=== PATIENT | female | born 1945 | race Two or more races ===

== ENCOUNTER 2023-10-10 14:15 | Inpatient (IN) | payer MEDICARE, OTHER ==
[~2023-10-10] VITALS: Ht 152.4 cm; Wt 55.8 kg
[2023-10-10] MEDS: IV NS 0.9% 1,000 ML BAG IV ONE ×2 (14:55→17:40)
[2023-10-10 15:12] LABS: BASOPHILS % (AUTO) 0.4 % (0.0-2.0); EOSINOPHILS % (AUTO) 0.1 % (0.0-6.0); HEMATOCRIT 41 % (33-45); HEMOGLOBIN 13.4 g/dL (11.5-14.8); LYMPHOCYTES # (AUTO) 0.6 K/uL (0.8-4.8); LYMPHOCYTES % (AUTO) 6.2 % (20.0-44.0); MEAN CORPUSCULAR HEMOGLOBIN 29 PG (26.0-33.0); MEAN CORPUSCULAR HGB CONC 33 g/dl (31.0-36.0); MEAN CORPUSCULAR VOLUME 88 fL (82-100); MONOCYTES # (AUTO) 0.4 K/uL (0.1-1.30); MONOCYTES % (AUTO) 4.1 % (2.0-12.0); NEUTROPHILS % (AUTO) 89.2 % (43.0-81.0); PLATELET COUNT (AUTO) 283 K/uL (150-450); RED BLOOD CELL COUNT(AUTO) 4.61 MIL/uL (4.0-5.2); RED CELL DISTRIBUTION WIDTH 13.9 % (11.5-15.0)
[2023-10-10 15:26] LABS: LACTIC ACID 6.6 mmol/L (0.4-2.0)
[2023-10-10] MEDS ORDERED: LORA10TA7 PO (15:27)
[2023-10-10] MEDS ORDERED: ONDA4TAB5 PO (15:27)
[2023-10-10] MEDS ORDERED: HYDR-4075 PO (15:27)
[2023-10-10] MEDS ORDERED: LOSA100T31 PO (15:27)
[2023-10-10] MEDS ORDERED: HYDR25TA4 PO (15:27)
[2023-10-10] MEDS ORDERED: CALC-167 PO (15:27)
[2023-10-10] MEDS ORDERED: INSU100I34 SQ (15:27)
[2023-10-10] MEDS ORDERED: METF-441 PO (15:27)
[2023-10-10] MEDS ORDERED: DOCU100T2 PO (15:27)
[2023-10-10] MEDS ORDERED: LEVO75TA7 PO (15:27)
[2023-10-10] MEDS ORDERED: SENN8.6T19 PO (15:27)
[2023-10-10] MEDS ORDERED: CLON0.1T PO (15:27)
[2023-10-10] MEDS ORDERED: ASPI-1169 PO (15:27)
[2023-10-10] MEDS ORDERED: FERR325T23 PO (15:27)
[2023-10-10] MEDS ORDERED: ACET-868 PO (15:27)
[2023-10-10] MEDS ORDERED: METO-357 PO (15:27)
[2023-10-10] MEDS ORDERED: BISA5TAB10 PO (15:27)
[2023-10-10] MEDS ORDERED: PRED20TA PO (15:27)
[2023-10-10] MEDS ORDERED: POTA8TAB3 PO (15:27)
[2023-10-10] MEDS ORDERED: AMLO10TA4 PO (15:27)
[2023-10-10] MEDS ORDERED: ATOR10TA PO (15:27)
[2023-10-10] MEDS ORDERED: HYDR-500 PO (15:27)
[2023-10-10] MEDS ORDERED: GABA300C PO (15:27)
[2023-10-10] MEDS ORDERED: DONE10TA44 PO (15:27)
[2023-10-10] MEDS ORDERED: DULO20CA PO (15:28)
[2023-10-10 15:32] LABS: APPEARANCE,URINE Clear (CLEAR); BILIRUBIN,URINE Negative (NEGATIVE); BLOOD, URINE Negative Ery/uL (NEGATIVE); COLOR,URINE YELLOW (YELLOW); KETONES,URINE Negative (NEGATIVE); LEUKOCYTE ESTERASE ,URINE Negative (NEGATIVE); NITRITE, URINE Negative (NEGATIVE); PH,URINE 6.5 (5.0-8.0); PROTEIN,URINE 30 mg/dl (NEGATIVE); UGLUCOSE Negative (NEGATIVE); UROBILINOGEN,URINE 0.2 EU/dL (0.2)
[2023-10-10 15:36] LABS: ADD URINE CULTURE NO; BACTERIA,URINE 1+ /HPF (None Seen); MUCUS,URINE Few /LPF (None Seen); RBC,URINE 0-2 /HPF (0-2); SQUAMOUS EPITHELIAL CELL,UR 0-2 /HPF (None Seen); WBC,URINE 0-2 /HPF (0-3)
[2023-10-10 15:41] LABS: CALCIUM, SERUM 9.6 mg/dL (8.5-10.1); CARBON DIOXIDE 23 mmol/L (21-32); CHLORIDE 94 mmol/L (98-107); GLUCOSE 193 mg/dL (74-106); POTASSIUM 4.2 mmol/L (3.5-5.1); SODIUM SERUM 129 mmol/L (136-145); UREA NITROGEN, BLOOD 25 mg/dL (7-18)
[2023-10-10 15:47] LABS: ALANINE AMINOTRANSFERASE 24 U/L (12-78); ALBUMIN 3.7 g/dL (3.4-5.0); ALKALINE PHOSPHATASE 44 U/L (46-116); ASPARTATE AMINOTRANSFERASE 10 U/L (15-37); BILIRUBIN,DIRECT 0.1 mg/dL (0.0-0.2); BILIRUBIN,TOTAL 0.3 mg/dL (0.2-1.0); TOTAL PROTEIN, SERUM 6.9 g/dL (6.4-8.2)
[2023-10-10] MEDS ORDERED: PIPERACI/TAZO 3.375GM/D5W 50ML PB IV ONE (17:40)
[2023-10-10] MEDS: PIPERACILLIN /TAZOBACTAM 3.375 G in IV D5W 50 ML IV ONE (17:45)
[2023-10-10] MEDS ORDERED: Z GUARD REMEDY 4 OZ OINT TP PRN (19:00)
[2023-10-10] MEDS ORDERED: ONDANSETRON HCL/PF 4 MG/2 ML VIAL IVP PRN (19:00)
[2023-10-10] MEDS ORDERED: ACETAMINOPHEN 325 MG TABLET PO PRN (19:00)
[2023-10-10] MEDS ORDERED: ZOLPIDEM TARTRATE 5 MG TABLET PO PRN (19:00)
[2023-10-10] MEDS ORDERED: MAGNESIUM HYDROXIDE 30 ML UDC PO PRN (19:00)
[2023-10-10] MEDS ORDERED: MAG HYDROX/AL HYDROX/SIMETH 30 ML UDC PO PRN (19:00)
[2023-10-10 19:04] VITALS: BP 141/69; TEMP 98.1; O2SAT 96
[2023-10-10] MEDS: ENOXAPARIN SODIUM 40 MG/0.4 ML DISP.SYRIN SQ SCH (20:10)
[2023-10-10] MEDS: ZOSYN IVPB 2.25 G in IV D5W 50ml IV SCH (23:59)
[2023-10-11 06:46] LABS: BASOPHILS % (AUTO) 0.1 % (0.0-2.0); EOSINOPHILS % (AUTO) 0.1 % (0.0-6.0); HEMATOCRIT 39 % (33-45); HEMOGLOBIN 12.7 g/dL (11.5-14.8); LYMPHOCYTES # (AUTO) 0.7 K/uL (0.8-4.8); MEAN CORPUSCULAR HEMOGLOBIN 29 PG (26.0-33.0); MEAN CORPUSCULAR HGB CONC 32 g/dl (31.0-36.0); MEAN CORPUSCULAR VOLUME 91 fL (82-100); MONOCYTES # (AUTO) 0.5 K/uL (0.1-1.30); NEUTROPHILS # (AUTO) 5.4 K/uL (1.8-8.9); NEUTROPHILS % (AUTO) 81.8 % (43.0-81.0); PLATELET COUNT (AUTO) 222 K/uL (150-450); RED BLOOD CELL COUNT(AUTO) 4.33 MIL/uL (4.0-5.2); RED CELL DISTRIBUTION WIDTH 13.9 % (11.5-15.0); WHITE BLOOD COUNT (AUTO) 6.6 K/uL (4.3-11.0)
[2023-10-11 07:30] VITALS: BP 160/57; TEMP 98.2; O2SAT 96
[2023-10-11 07:36] LABS: CARBON DIOXIDE 22 mmol/L (21-32); CHLORIDE 99 mmol/L (98-107); CREATININE 0.5 mg/dL (0.6-1.3); GLUCOSE 157 mg/dL (74-106); MAGNESIUM 2.1 mg/dL (1.8-2.4); PHOSPHORUS 2.9 mg/dL (2.5-4.9); POTASSIUM 3.1 mmol/L (3.5-5.1); SODIUM SERUM 133 mmol/L (136-145); UREA NITROGEN, BLOOD 18 mg/dL (7-18)
[2023-10-11 08:00] VITALS: BP 155/75
[2023-10-11] MEDS: PANTOPRAZOLE 40 MG TABLET.DR PO SCH (08:09)
[2023-10-11] MEDS: POTASSIUM CHLORIDE 20 MEQ TAB.PRT.SR PO SCH (11:50)
[2023-10-11] MEDS ORDERED: BISACODYL (5 MG) 5 MG TABLET.DR PO PRN (12:30)
[2023-10-11] MEDS ORDERED: CLONIDINE HCL 0.1 MG TABLET PO PRN (12:30)
[2023-10-11] MEDS ORDERED: ACETAMINOPHEN 325 MG TABLET PO PRN (12:30)
[2023-10-11] MEDS: IV NS 0.9% 1,000 ML IV PRN (12:38)
[2023-10-11] MEDS ORDERED: ONDANSETRON 4 MG TAB.RAPDIS PO PRN (13:00)
[2023-10-11] MEDS: hydrALAZINE HCL 10 MG TABLET PO SCH (13:41)
[2023-10-11 16:05] VITALS: BP 160/70; TEMP 97.5; O2SAT 97
[2023-10-11] MEDS: DOCUSATE SODIUM 100 MG CAPSULE PO SCH (16:13)
[2023-10-11] MEDS: GABAPENTIN 300 MG CAPSULE PO SCH (16:13)
[2023-10-11] MEDS ORDERED: hydrALAZINE HCL 25 MG TABLET PO SCH (16:30)
[2023-10-11 17:00] VITALS: BP 150/70
[2023-10-11 20:32] VITALS: BP 141/66; TEMP 98.2; O2SAT 96
[2023-10-11] MEDS: DULOXETINE HCL 20 MG CAPSULE.DR PO SCH (21:06)
[2023-10-11] MEDS: DONEPEZIL 5 MG TABLET PO SCH (21:06)
[2023-10-11] MEDS: ATORVASTATIN 10 MG TABLET PO SCH (21:06)
[2023-10-12 07:03] LABS: BASOPHILS % (AUTO) 0.1 % (0.0-2.0); EOSINOPHILS % (AUTO) 0.2 % (0.0-6.0); HEMATOCRIT 36 % (33-45); LYMPHOCYTES # (AUTO) 0.6 K/uL (0.8-4.8); LYMPHOCYTES % (AUTO) 11.4 % (20.0-44.0); MEAN CORPUSCULAR HEMOGLOBIN 29 PG (26.0-33.0); MEAN CORPUSCULAR HGB CONC 33 g/dl (31.0-36.0); MEAN CORPUSCULAR VOLUME 89 fL (82-100); MONOCYTES # (AUTO) 0.5 K/uL (0.1-1.30); NEUTROPHILS # (AUTO) 4.4 K/uL (1.8-8.9); NEUTROPHILS % (AUTO) 79.3 % (43.0-81.0); PLATELET COUNT (AUTO) 209 K/uL (150-450); RED BLOOD CELL COUNT(AUTO) 4.09 MIL/uL (4.0-5.2); RED CELL DISTRIBUTION WIDTH 13.8 % (11.5-15.0); WHITE BLOOD COUNT (AUTO) 5.6 K/uL (4.3-11.0)
[2023-10-12 07:30] VITALS: BP 129/59; TEMP 97.2; O2SAT 97
[2023-10-12 07:40] LABS: CALCIUM, SERUM 8.4 mg/dL (8.5-10.1); CARBON DIOXIDE 24 mmol/L (21-32); CHLORIDE 102 mmol/L (98-107); CREATININE 0.6 mg/dL (0.6-1.3); GLUCOSE 237 mg/dL (74-106); MAGNESIUM 2.2 mg/dL (1.8-2.4); PHOSPHORUS 2.4 mg/dL (2.5-4.9); POTASSIUM 3.4 mmol/L (3.5-5.1); SODIUM SERUM 138 mmol/L (136-145); UREA NITROGEN, BLOOD 15 mg/dL (7-18)
[2023-10-12] MEDS: ASPIRIN 81 MG TAB.CHEW PO SCH (08:22)
[2023-10-12] MEDS: predniSONE 20 MG TABLET PO SCH (08:22)
[2023-10-12] MEDS: SENNOSIDES 8.6 MG TABLET PO SCH (08:22)
[2023-10-12] MEDS: CALCIUM CARB 600MG /VIT D 1 EACH TABLET PO SCH (08:22)
[2023-10-12] MEDS: FERROUS SULFATE (325 MG) 325 MG/TAB TABLET PO SCH (08:22)
[2023-10-12] MEDS: LORATADINE 10 MG TABLET PO SCH (08:22)
[2023-10-12] MEDS: AMLODIPINE BESYLATE 10 MG TABLET PO SCH (08:23)
[2023-10-12] MEDS: HYDROCHLOROTHIAZIDE 25 MG TABLET PO SCH (08:23)
[2023-10-12] MEDS: LEVOTHYROXINE SODIUM 75 MCG TABLET PO SCH (08:23)
[2023-10-12] MEDS: METOPROLOL SUCCINATE 50 MG TAB.SR.24H PO SCH (08:24)
[2023-10-12 08:55] LABS: URIC ACID 1.9 mg/dL (2.6-7.2)
[2023-10-12] MEDS ORDERED: hydrOXYzine 10 MG TABLET PO SCH (09:00)
[2023-10-12] MEDS: POTASSIUM CHLORIDE 20 MEQ TAB.PRT.SR PO SCH (12:27)
[2023-10-12 16:00] VITALS: BP 180/67; TEMP 97.7; O2SAT 98
[2023-10-12] MEDS: K PHOS NEUTRAL 250 MG TABLET PO ONE (16:15)
[2023-10-12] MEDS ORDERED: DEXTROSE 50%-WATER 50 ML DISP.SYRIN IV PRN (17:30)
[2023-10-12] MEDS: INSULIN REGULAR, HUMAN 100 UNIT/ML 3 ML VIAL SQ PRN (19:25)
[2023-10-12] MEDS: BLOOD SUGAR DIAGNOSTIC 1 EACH STRIP IN SCH (19:30)
[2023-10-12 20:00] VITALS: BP 156/74; TEMP 97.8; O2SAT 97
[2023-10-13 07:36] LABS: BASOPHILS % (AUTO) 0.1 % (0.0-2.0); EOSINOPHILS % (AUTO) 0.4 % (0.0-6.0); HEMATOCRIT 39 % (33-45); HEMOGLOBIN 12.9 g/dL (11.5-14.8); LYMPHOCYTES # (AUTO) 0.8 K/uL (0.8-4.8); LYMPHOCYTES % (AUTO) 10.1 % (20.0-44.0); MEAN CORPUSCULAR HEMOGLOBIN 29 PG (26.0-33.0); MEAN CORPUSCULAR HGB CONC 33 g/dl (31.0-36.0); MEAN CORPUSCULAR VOLUME 88 fL (82-100); MONOCYTES # (AUTO) 0.7 K/uL (0.1-1.30); MONOCYTES % (AUTO) 9.6 % (2.0-12.0); NEUTROPHILS % (AUTO) 79.8 % (43.0-81.0); PLATELET COUNT (AUTO) 239 K/uL (150-450); RED BLOOD CELL COUNT(AUTO) 4.47 MIL/uL (4.0-5.2); RED CELL DISTRIBUTION WIDTH 13.7 % (11.5-15.0); WHITE BLOOD COUNT (AUTO) 7.6 K/uL (4.3-11.0)
[2023-10-13 08:07] LABS: CALCIUM, SERUM 9.2 mg/dL (8.5-10.1); CARBON DIOXIDE 29 mmol/L (21-32); CHLORIDE 98 mmol/L (98-107); CREATININE 0.6 mg/dL (0.6-1.3); GLUCOSE 152 mg/dL (74-106); MAGNESIUM 2.2 mg/dL (1.8-2.4); PHOSPHORUS 2.9 mg/dL (2.5-4.9); POTASSIUM 3.2 mmol/L (3.5-5.1); SODIUM SERUM 135 mmol/L (136-145); UREA NITROGEN, BLOOD 13 mg/dL (7-18)
[2023-10-13] MEDS: POTASSIUM CHLORIDE 20 MEQ TAB.PRT.SR PO SCH (10:12)
[2023-10-13 11:27] VITALS: BP 159/81
[2023-10-14 07:33] LABS: EOSINOPHILS % (AUTO) 0.5 % (0.0-6.0); HEMATOCRIT 39 % (33-45); LYMPHOCYTES # (AUTO) 0.9 K/uL (0.8-4.8); MEAN CORPUSCULAR HEMOGLOBIN 29 PG (26.0-33.0); MEAN CORPUSCULAR HGB CONC 33 g/dl (31.0-36.0); MEAN CORPUSCULAR VOLUME 88 fL (82-100); MONOCYTES # (AUTO) 0.6 K/uL (0.1-1.30); MONOCYTES % (AUTO) 8.1 % (2.0-12.0); NEUTROPHILS # (AUTO) 6.1 K/uL (1.8-8.9); NEUTROPHILS % (AUTO) 79.4 % (43.0-81.0); PLATELET COUNT (AUTO) 216 K/uL (150-450); RED BLOOD CELL COUNT(AUTO) 4.43 MIL/uL (4.0-5.2); RED CELL DISTRIBUTION WIDTH 13.9 % (11.5-15.0); WHITE BLOOD COUNT (AUTO) 7.6 K/uL (4.3-11.0)
[2023-10-14 07:57] LABS: CALCIUM, SERUM 9.2 mg/dL (8.5-10.1); CARBON DIOXIDE 26 mmol/L (21-32); CHLORIDE 99 mmol/L (98-107); CREATININE 0.6 mg/dL (0.6-1.3); GLUCOSE 160 mg/dL (74-106); MAGNESIUM 2.4 mg/dL (1.8-2.4); PHOSPHORUS 3.1 mg/dL (2.5-4.9); POTASSIUM 3.9 mmol/L (3.5-5.1); SODIUM SERUM 135 mmol/L (136-145); UREA NITROGEN, BLOOD 21 mg/dL (7-18)
[2023-10-14 08:36] VITALS: BP 170/74; TEMP 98; O2SAT 95
[2023-10-14] MEDS: LISINOPRIL (20MG) 20 MG TABLET PO SCH (12:59)
[2023-10-14 16:15] VITALS: BP 162/73
[2023-10-14] MEDS: hydrALAZINE HCL 25 MG TABLET PO PRN (16:15)
== END 2023-10-14 16:35 | DRG 641 ==
LOC: ER 14:26 → MED 18:13
PROVIDERS: ADMIT Student in an Organized Health Care Education/Training Program; ATTEND Student in an Organized Health Care Education/Training Program
DX: E86.0 Dehydration (principal); G93.40 Encephalopathy, unspecified; E87.1 Hypo-osmolality and hyponatremia; E87.20 Acidosis, unspecified; G30.9 Alzheimer's disease, unspecified; F02.80 Dementia in other diseases classified elsewhere, unspecified severity, without behavioral disturbance, psychotic disturbance, mood disturbance, and anxiety; E11.65 Type 2 diabetes mellitus with hyperglycemia; E78.5 Hyperlipidemia, unspecified; I10 Essential (primary) hypertension; Z79.84 Long term (current) use of oral hypoglycemic drugs; Z79.890 Hormone replacement therapy; Z79.899 Other long term (current) drug therapy; Z79.82 Long term (current) use of aspirin; Z79.4 Long term (current) use of insulin; R60.9 Edema, unspecified; E86.9 Volume depletion, unspecified; E87.6 Hypokalemia
CPT/HCPCS: 36415; 70487-TC; 71045-TC; 80048-TC; 80076-TC; 81001; 82962-TC; 83605-TC; 83735-TC; 84100-TC; 84439-TC; 84443-TC; 84484-TC; 84550-TC; 85025-TC; 87040-TC; 97110-TC; 97530-TC; A4223; G0378; J1650; J1815; J2543; J7030; J7060